=== PATIENT | male | born 1955 | race Caucasian/White ===

== ENCOUNTER 2018-03-13 17:24 | Emergency (ER) | payer OTHER ==
[~2018-03-13 17:24] MED LIST: ISOVUE-370 76%-LOCM 1 ML ONE
[2018-03-13 17:48] LABS: #Lymphocytes 0.9 thou/uL (1.20-3.40); #Monocytes 0.7 thou/uL (0.11-0.59); #Neutrophils 5.3 thou/uL (1.40-6.50); %Basophils 0.7 % (0.0-1.0); %Eosinophils 0.2 % (0.0-10.0); %Monocytes 9.5 % (0.0-10.0); %Neutrophils 76.7 % (42.0-75.0); Hemoglobin 16.3 g/dL (14.0-18.0); Mean Corpuscular HGB CONC 35.4 g/dL (32.0-36.0); Mean Corpuscular Hemoglobin 31.7 pg (27.0-31.0); Mean Corpuscular Volume 89.7 fL (78.0-98.0); Mean Platelet Volume 7.7 fL (7.4-10.4); Platelet Count 185 thou/uL (130-400); Red Blood Cell (RBC) Count 5.15 mill/uL (4.70-6.10); White Blood Cell (WBC) Count 6.9 thou/uL (4.8-10.8)
[2018-03-13 17:50] LABS: Actual Bicarbonate (HCO3a) 18.9 mEq/L (22-28); CO2 Tension 20.2 mmHg (35.0-45.0); Hematocrit-ABG 49.6 % (42.0-52.0); Hemoglobin (Hb) 15.9 g/dL (14.0-18.0); O2 Tension (PaO2) 61.3 mmHg (> 80.0); pH, Arterial 7.59 (7.35-7.45)
[2018-03-13 17:51] LABS: Analyzer IN Cardio ER; Calcium, Ionized 1.2 mmol/L (1.12-1.30); Puncture Site LRA
[2018-03-13 18:09] LABS: ALT (SGPT) 34 U/L (8-55); AST (SGOT) 23 U/L (5-34); Albumin 4.8 g/dL (3.5-5.0); Alkaline Phosphatase 57 U/L (40-150); Anion Gap 17 mmol/L (10-20); BUN (Urea Nitrogen) 10 mg/dL (8.4-25.7); Bilirubin, Total 0.6 mg/dL (0.2-1.2); Calc. Creatinine Clearance 0 mL/min (70-130); Calcium 10.1 mg/dL (7.8-10.44); Carbon Dioxide 20 mmol/L (22-29); Chloride 94 mmol/L (98-107); Estimated GFR-MDRD 82; Globulin 2.7 g/dL (2.4-3.5); Glucose 153 mg/dL (70-105); Potassium 3.6 mmol/L (3.5-5.1); Protein, Total 7.5 g/dL (6.0-8.3); Sodium 127 mmol/L (136-145)
[2018-03-13 18:14] LABS: CKMB 3.6 ng/mL (0-6.6); Troponin I Less than 0.010 ng/mL (< 0.028)
--- NOTE | 2018-03-13 18:19 | RAD ---
CHEST ONE VIEW: 03/13/18 HISTORY: Shortness of breath. Chest tightness. Symptoms are gradually worsening throughout the day. COMPARISON: None. FINDINGS: Normal cardiac silhouette. Pulmonary vessels and pulmonary hilum are normal. Costophrenic angles appe ar to be clear. Elevation of the right hemidiaphragm likely due to atelectasis. Adequate aeration of the left lung. No pneumothorax or osseous abnormalities. IMPRESSION: Elevation of the right hemidiaphragm. Right lower lobe atelectasis. POS: [facility]
[2018-03-13] MEDS ORDERED: Lorazepam 2 MG/ML VIAL ONE (19:27)
--- NOTE | 2018-03-13 20:03 | CT ---
CT ANGIOGRAM CHEST WITH CONTRAST Pulmonary embolism protocol 03/13/18 HISTORY: Shortness of breath. Chest pain. COMPARISON: Chest radiograph same day. FINDINGS: CT angiogram of the chest performed after the intravenous administration of contrast. 3D rendering is provided. No proximal segmental pulmonary arterial filling defect. Pulmonary trunk size is not dilated. The aor tic contour is nonaneurysmal. Small sliding hiatal hernia. Incomplete evaluation of the upper abdomen, although this is felt likely a ventral hernia. There is no significant mediastinal adenopathy. There is severe periseptal and central lobular emphys salvatore. No pneumothorax. Bibasilar atelectasis, worsening in the right lower lobe. Right upper lobe calcified granuloma. No suspicious mass. Left lower lobe calcified granuloma. No tho racic spine compression fractures. No displaced rib fracture. IMPRESSION: 1. No proximal segmental pulmonary arterial filling defect. 2. Mild right hemidiaphragm elevation atelectasis. 3. Severe emphysematous changes. POS: HOME
[2018-03-13 21:20] LABS: Troponin I Less than 0.010 ng/mL (< 0.028)
--- NOTE | 2018-03-17 11:57 | EKG ---
Test Reason : SOB Blood Pressure : / mmHG Vent. Rate : 123 BPM Atrial Rate : 123 BPM P-R Int : 156 ms QRS Dur : 076 ms QT Int : 310 ms P-R-T Axes : 036 -39 052 degrees QTc Int : 443 ms Sinus tachycardia Possible Left atrial enlargement Left axis deviation Septal infarct , age undetermined Abnormal ECG Confirmed by YAMILEX NORAMN ([id number]), city editor GERYR CHURCHILL ([id number]) on 03/17/2018 11:56:34 AM Referred By: Confirmed By:YAMILEX NORMAN
== END 2018-03-13 22:58 ==
LOC: ERS 17:24 → EEVIPCON 17:24 → ERS 22:58
DX: R06.4 Hyperventilation (principal); J44.9 Chronic obstructive pulmonary disease, unspecified; E11.9 Type 2 diabetes mellitus without complications; K21.9 Gastro-esophageal reflux disease without esophagitis; I10 Essential (primary) hypertension; Z79.899 Other long term (current) drug therapy; Z79.4 Long term (current) use of insulin; Z79.82 Long term (current) use of aspirin
CPT/HCPCS: 36415; 71045; 71275; 80053; 82553; 82805; 83605; 83880; 84484; 85025; 85379; 87040; 93005; 94640; 96374; J2060

== ENCOUNTER 2020-01-30 10:59 | Inpatient (IN) | payer OTHER ==
[2020-01-30 11:37] LABS: Actual Bicarbonate (HCO3a) 22.2 mEq/L (22-28); Analyzer IN Cardio ER; Base Excess (BEa) 0.1 mEq/L (-2.0 to +3.0); CO2 Tension 29.4 mmHg (35.0-45.0); Calcium, Ionized (arterial) 1.09 mmol/L (1.12-1.30); Carboxyhemoglobin (COHb) 2.8 gm% (0.0-3.0); Hemoglobin (Hb) 14.6 g/dL (14.0-18.0); O2 Tension (PaO2), arterial 69.2 mmHg (> 80.0); Potassium - ABG Lab 4.37 mmol/L (3.70-5.30)
[2020-01-30 11:38] LABS: Puncture Site RR
[2020-01-30 11:40] LABS: Hemoglobin 14.4 g/dL (14.0-18.0); Mean Corpuscular HGB CONC 33.9 g/dL (32.0-36.0); Mean Corpuscular Hemoglobin 31.8 pg (27.0-31.0); Mean Corpuscular Volume 93.8 fL (78.0-98.0); Mean Platelet Volume 8.3 fL (7.4-10.4); Platelet Count 188 thou/uL (130-400); Red Blood Cell (RBC) Count 4.51 mill/uL (4.70-6.10); White Blood Cell (WBC) Count 17.3 thou/uL (4.8-10.8)
--- NOTE | 2020-01-30 11:43 | RAD ---
Exam: Chest one view HISTORY:Dyspnea. Positive COVID status Comparison: 03/13/2018 FINDINGS: Cardiac silhouette: Normal Aorta: Unremarkable Pulmonary vessels: Normal Costophrenic angles: Clear LUNGS: Scattered interstitial and alveolar opacities. Pneumothorax: None Osseous abnormalities: None IMPRESSION: Scattered interstitial and alveolar opacities worrisome for infiltrate. Given positive: S tatus, correlate for atypical viral pneumonia.
[2020-01-30] MEDS ORDERED: Magnesium 2 GM/50 ML BAG (IN WATER) ONE (11:50)
[2020-01-30 12:01] LABS: Band 14 % (5-11); Lymphocytes 2 % (21-51); MDiff Complete? YES; Monocytes 6 % (0-10); Neutrophil 78 % (42-75); RBC Morphology Normal
[2020-01-30 12:04] LABS: ALT (SGPT) 12 U/L (8-55); AST (SGOT) 19 U/L (5-34); Alkaline Phosphatase 72 U/L (40-110); Anion Gap 16 mmol/L (10-20); BUN (Urea Nitrogen) 10 mg/dL (8.4-25.7); Bilirubin, Total 1.6 mg/dL (0.2-1.2); Calc. Creatinine Clearance 0 mL/min (70-130); Carbon Dioxide 24 mmol/L (23-31); Chloride 95 mmol/L (98-107); Estimated GFR-MDRD Greater than 90; Glucose 195 mg/dL (80-115); Potassium 4.5 mmol/L (3.5-5.1); Sodium 130 mmol/L (136-145)
[2020-01-30] MEDS ORDERED: Acetaminophen 325 MG TAB PO PRN (16:22)
[2020-01-30] MEDS ORDERED: Dextrose 5% in Water 1,000 ML IV PRN (16:22)
[2020-01-30] MEDS ORDERED: Dextrose 50% Abboject 50 ML SYRINGE SLOW IVP PRN (16:22)
[2020-01-30] MEDS ORDERED: Bisacodyl 5 MG TAB PO PRN (16:22)
[2020-01-30] MEDS ORDERED: Albuterol 200 PUFF (6.7GM INHALER) INH PRN (17:20)
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
[2020-01-30] MEDS ORDERED: Azithromycin 500 MG in Sodium Chloride 0.9% 250 ML 250 ML IVPB SCH (18:00)
[2020-01-30 18:10] LABS: Troponin I 0.188 ng/mL (< 0.028)
[2020-01-30 20:28] LABS: ALT (SGPT) 14 U/L (8-55); AST (SGOT) 20 U/L (5-34); Alkaline Phosphatase 79 U/L (40-110); Bilirubin, Direct 0.5 mg/dL (0.1-0.3); Protein, Total 6.4 g/dL (5.8-8.1)
[2020-01-30] MEDS ORDERED: REMDESIVIR 200 MG in Sodium Chloride 0.9% 250 ML 210 ML IV SCH (21:30)
[2020-01-30] MEDS ORDERED: Azithromycin 500 MG VIAL ONE (22:57)
[2020-01-30] MEDS ORDERED: Cefepime 2 GM VIAL ONE (23:35)
[2020-01-30] MEDS: Cefepime 2 GM in Sodium Chloride 0.9% 100 ML IVPB SCH (23:52)
[2020-01-31] MEDS: Albuterol 200 PUFF (6.7GM INHALER) INH SCH ×5 (00:57→23:42)
[2020-01-31 01:29] VITALS: BMI 25.4
[2020-01-31 03:47] LABS: #Lymphocytes 0.7 thou/uL (1.20-3.40); #Monocytes 1.2 thou/uL (0.11-0.59); %Eosinophils 0.1 % (0.0-10.0); %Neutrophils 88.9 % (42.0-75.0); Hemoglobin 13.4 g/dL (14.0-18.0); Mean Corpuscular Hemoglobin 31.1 pg (27.0-31.0); Mean Corpuscular Volume 94.2 fL (78.0-98.0); Mean Platelet Volume 8.6 fL (7.4-10.4); Platelet Count 155 thou/uL (130-400); RBC Distribution Width 13.2 % (11.5-14.5); Red Blood Cell (RBC) Count 4.31 mill/uL (4.70-6.10); White Blood Cell (WBC) Count 16.8 thou/uL (4.8-10.8)
[2020-01-31 04:10] LABS: Anion Gap 13 mmol/L (10-20); BUN (Urea Nitrogen) 12 mg/dL (8.4-25.7); Calc. Creatinine Clearance 125 mL/min (70-130); Calcium 7.7 mg/dL (7.8-10.44); Carbon Dioxide 23 mmol/L (23-31); Chloride 98 mmol/L (98-107); Estimated GFR-MDRD Greater than 90; Glucose 217 mg/dL (80-115); Potassium 4.3 mmol/L (3.5-5.1); Sodium 130 mmol/L (136-145)
[2020-01-31 04:11] LABS: ALT (SGPT) 9 U/L (8-55); AST (SGOT) 17 U/L (5-34); Albumin 2.7 g/dL (3.4-4.8); Alkaline Phosphatase 81 U/L (40-110); Bilirubin, Direct 0.4 mg/dL (0.1-0.3); Bilirubin, Total 0.5 mg/dL (0.2-1.2); Protein, Total 5.6 g/dL (5.8-8.1)
[2020-01-31] MEDS: Cefepime 2 GM in Sodium Chloride 0.9% 100 ML IVPB SCH (05:00)
[2020-01-31] MEDS ORDERED: Enoxaparin Sodium 40 MG/0.4 ML SYRINGE SC SCH ×2 (09:00→21:00)
[2020-01-31] MEDS: Nitroglycerin 0.4 MG TAB (25 Tab Bottle) ONE ×2 (09:25→09:30)
[2020-01-31] MEDS ORDERED: Morphine 2 MG/ML SYRINGE SLOW IVP PRN (09:46)
[2020-01-31] MEDS ORDERED: Nitroglycerin 0.4 MG TAB (25 Tab Bottle) SL PRN (10:14)
[2020-01-31 10:41] LABS: Troponin I 0.194 ng/mL (< 0.028)
[2020-01-31] MEDS: HumaLOG 300 UNITS/3 ML VIAL SC PRN ×2 (12:10→15:37)
[2020-01-31] MEDS ORDERED: methylPREDNISolone Sod Succ/PF 125 MG/2 ML VIAL IVP SCH (15:00)
[2020-01-31] MEDS: Morphine 2 MG/ML SYRINGE SLOW IVP PRN ×2 (15:09→20:29)
[2020-01-31 16:06] LABS: Troponin I 0.184 ng/mL (< 0.028)
[2020-01-31] MEDS ORDERED: Lorazepam 2 MG/ML VIAL SLOW IVP SCH (16:30)
[2020-01-31 17:02] VITALS: TEMP 98.4
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
[2020-01-31] MEDS ORDERED: Haloperidol Lactate 5 MG/ML VIAL IM SCH (17:30)
[2020-01-31] MEDS ORDERED: Ziprasidone 20 MG VIAL IM PRN (18:11)
--- NOTE | 2020-01-31 18:23 | PDOC.HOSPP ---
- Subjective Encounter Date: 01/31/20 Encounter Time: 18:29 Subjective: Pt seen for followup re: sepsis. c/o chest discomfort, on and off. c/o SOBOE. - Objective Vital Signs & Weight: Vital Signs (12 hours) Temp Pulse Pulse Ox 01/31/20 16:00 98.4 F 01/31/20 14:45 104 H 01/31/20 12:00 98.1 F 01/31/20 10:51 100 01/31/20 08:00 98.2 F 92 L 01/31/20 06:40 89 Weight Weight 193 lb 5.526 oz Most Recent Monitor Data Heart Rate from ECG 117 NIBP 100/77 NIBP BP-Mean 84 Respiration from ECG 19 SpO2 83 I&O: 01/30/20 01/31/20 02/01/20 06:59 06:59 06:59 Intake Total 450 1600 Output Total 400 1050 Balance 50 550 Result Diagrams: 01/31/20 03:21 01/31/20 03:20 Additional Labs: Accuchecks 01/31/20 01/31/20 01/31/20 15:17 12:09 05:03 POC Glucose 241 H 224 H 192 H Labs and MARs reviewed by me EKG Reviewed by me: Yes (Tele: NSR) Hospitalist ROS - Review of Systems Respiratory: reports: cough, dry, SOB with excertion. denies: shortness of breath, hemoptysis, pleuritic pain, sputum, wheezing Cardiovascular: reports: chest pain. denies: palpitations, orthopnea, paroxysmal noc. dyspnea, edema, light headedness - Medication Medications: Active Medications Generic Name Dose Route Start Last Admin Trade Name Sylvesterq PRN Reason Stop Dose Admin Acetaminophen 650 mg 01/30/20 16:22 01/31/20 09:25 Tylenol PO 650 mg Q4H PRN Administration Headache/Fever/Mild Pain (1-3) Albuterol Sulfate 2 puff 01/30/20 19:00 01/31/20 14:45 Proventil Hfa INH 2 puff [id number] FENG Administration Haloperidol Lactate 5 mg 01/31/20 17:30 01/31/20 17:40 Haldol IM 01/31/20 19:30 5 mg NOW FENG Administration Insulin Human Lispro 0 units 01/30/20 16:22 01/31/20 15:37 Humalog SC 3 unit .MILD SLIDING SCALE PRN Administration Mild Correctional Scale Lorazepam 0.25 mg 01/31/20 16:30 01/31/20 16:23 Ativan SLOW IVP 01/31/20 18:30 0.25 mg NOW FENG Administration Methylprednisolone Sodium Succinate 80 mg 01/31/20 15:00 01/31/20 15:08 Solu-Medrol IVP 80 mg 1500 FENG Administration Morphine Sulfate 2 mg 01/31/20 09:46 01/31/20 09:50 Morphine SLOW IVP 2 mg Q2H PRN Administration CHEST PAIN/ BREAKTHROUGH Morphine Sulfate 4 mg 01/31/20 09:49 01/31/20 15:09 Morphine SLOW IVP 4 mg Q4H PRN Administration Pain - Exam General Appearance: awake alert, ill appearing Eye: anicteric sclera ENT: normocephalic atraumatic Neck: no carotid bruit Heart: RRR Respiratory: no rales, wheezes Gastrointestinal: soft, non-tender Extremities: no cyanosis Musculoskeletal: no muscle wasting Psychiatric: normal behavior, oriented to person, oriented to place Hosp A/P (1) Sepsis Code(s): A41.9 - SEPSIS, UNSPECIFIED ORGANISM Status: Acute (2) Acute respiratory failure with hypoxia Code(s): J96.01 - ACUTE RESPIRATORY FAILURE WITH HYPOXIA Status: Acute (3) Pneumonia due to COVID-19 virus Code(s): U07.1 - COVID-19; J12.89 - OTHER VIRAL PNEUMONIA Status: Acute (4) DM2 (diabetes mellitus, type 2) Status: Chronic (5) HTN (hypertension) Code(s): I10 - ESSENTIAL (PRIMARY) HYPERTENSION Status: Chronic - Plan Pt was on nonrebreather mask, now back on BiPAP. Glendy for agitation. Pt is on remdesivir protocol. Switch to moderate insulin sliding scale. Pt reportedly declined convalescent plasma therapy.
[2020-01-31] MEDS ORDERED: HumaLOG 300 UNITS/3 ML VIAL SC PRN (18:27)
[2020-01-31] MEDS ORDERED: Sterile Water 10 ML VIAL FS PRN (18:44)
[2020-01-31] MEDS ORDERED: Lorazepam 2 MG/ML VIAL SLOW IVP PRN ×2 (19:14→19:58)
[2020-01-31] MEDS ORDERED: Cefepime 2 GM in Sodium Chloride 0.9% 100 ML IVPB SCH (21:00)
[2020-01-31] MEDS ORDERED: Azithromycin 500 MG in Sodium Chloride 0.9% 250 ML 250 ML IVPB SCH (21:00)
[2020-01-31] MEDS ORDERED: REMDESIVIR 100 MG in Sodium Chloride 0.9% 250 ML 230 ML IV SCH (21:30)
--- NOTE | 2020-02-02 00:10 | DIS ---
DATE OF ADMISSION: 01/30/2020 DATE OF DISCHARGE: 01/31/2020 DATE OF : 01/31/2020. PRIMARY CARE PROVIDER: Unknown. DIAGNOSES: 1. Sepsis. 2. Acute hypoxic respiratory failure. 3. Pneumonia due to COVID-19 virus. 4. Hyponatremia. CONSULTATIONS DURING THIS HOSPITALIZATION: 1. Pulmonary and Critical Care Medicine, Dr. Alvarado. 2. Infectious Diseases, Dr. Batista. HOSPITAL COURSE: Mr. Weber is a pleasant 64-year-old gentleman, who was admitted to [facility] on January 30, 2020 for sepsis secondary to COVID-19 pneumonia. Please refer to my history and physical note dated January 30, 2020 for further details. He was treated with BiPAP in the critical care unit. He was started on remdesivir on the night of January 30, 2020. The following day, he continued to be hypoxic. He was seen by Pulmonary and Critical Care Medicine and Infectious Disease Services. He was recommended convalescent plasma therapy. The patient did not want to have convalescent plasma therapy. He also did not wish for any aggressive measures and requested to be made DNAR. He continued to decline and at 2050 hours on January 31 2020. Many thanks for allowing me to participate in Mr. Weber' care. Please feel free to contact me with any questions or concerns. Job ID: [id number]
== END 2020-01-31 20:50 | disposition expired | DRG 871 ==
LOC: ERS 10:59 → ERHOLD 15:30 → CCU 01-31 00:46
PROVIDERS: ADMIT Internal Medicine; ATTEND Internal Medicine
PROC: 8E0ZXY6 Isolation (ICD-10-PCS; principal; 2020-01-30)
PROC: 5A09357 Assistance with Respiratory Ventilation, Less than 24 Consecutive Hours, Continuous Positive Airway Pressure (ICD-10-PCS; 2020-01-30)
DX: A41.89 Other specified sepsis (principal); U07.1 COVID-19; J12.89 Other viral pneumonia; J96.01 Acute respiratory failure with hypoxia; E87.1 Hypo-osmolality and hyponatremia; Z66 Do not resuscitate; K21.9 Gastro-esophageal reflux disease without esophagitis; N40.0 Benign prostatic hyperplasia without lower urinary tract symptoms; I10 Essential (primary) hypertension; E11.9 Type 2 diabetes mellitus without complications; J43.9 Emphysema, unspecified; Z87.891 Personal history of nicotine dependence; Z88.5 Allergy status to narcotic agent; Z79.899 Other long term (current) drug therapy; Z79.82 Long term (current) use of aspirin; Z79.84 Long term (current) use of oral hypoglycemic drugs; Z79.51 Long term (current) use of inhaled steroids
CPT/HCPCS: 36415; 36416; 71045; 80048; 80053; 80076; 82728; 82805; 83605; 84484; 85025; 85379; 86140; 87040; 93005; 94660; 96365; J0456; J0692; J1630; J1650; J2060; J2270; J2930; J3475; J3486; J3490; J7050